=== PATIENT | male | born 2000 | race Two or more races ===

== ENCOUNTER 2021-06-25 17:23 | Emergency (ER) | payer OTHER ==
[~2021-06-25] VITALS: Ht 172.7 cm; Wt 68.0 kg
[2021-06-25] MEDS ORDERED: CIPRO500 MG PO (19:35)
== END 2021-06-25 20:22 | disposition home or self-care (01) ==
LOC: ER 17:23 → EDBD 19:47 → ER 20:22
DX: S61.011A Laceration without foreign body of right thumb without damage to nail, initial encounter (principal); W25.XXXA Contact with sharp glass, initial encounter; Y93.G1 Activity, food preparation and clean up; Y92.89 Other specified places as the place of occurrence of the external cause; Y99.9 Unspecified external cause status